=== PATIENT | male | born 1995 | race Caucasian/White ===

== ENCOUNTER 2017-11-08 19:23 | Emergency (ER) | payer OTHER ==
[2017-11-08 19:31] VITALS: BP 157/103
--- NOTE | 2017-11-08 19:53 | RAD ---
Indication: Left wrist pain 3 views of the wrist demonstrates no fracture. No other bone or joint abnormality is identified. IMPRESSION: NO FRACTURE OF THE WRIST IS NOTED.
--- NOTE | 2017-11-08 19:56 | UC ---
Evie Brothers Emily, scribed for Lake Davis MD on 11/08/17 at 1946 . Hand/Wrist HPI - HPI Summary HPI Summary: This patient is a 22 year old M presenting to urgent care accompanied by family with a chief complaint of L hand pain radiating up the L arm that began 2 days ago. Pt denies any injury to hand. The patient rates the pain 3/10 in severity. Symptoms aggravated by holding things and movement. Symptoms alleviated by nothing. Patient reports numbness on back of hand. - History Of Current Complaint Chief Complaint: UCUpperExtremity Stated Complaint: WRIST PAIN Time Seen by Provider: 11/08/17 19:34 Hx Obtained From: Patient Onset/Duration: Sudden Onset, Lasting Days, Still Present Severity Initially: Mild Severity Currently: Mild Pain Intensity: 3 Pain Scale Used: 0-10 Numeric Aggravating Factor(s): Movement, Lifting Alleviating Factor(s): Nothing Associated Signs And Symptoms: Positive: Numbness/Tingling - Allergies/Home Medications Allergies/Adverse Reactions: Allergies Allergy/AdvReac Type Severity Reaction Status Date / Time pollen extracts Allergy Severe CONGESTION, Verified 11/08/17 19:31 SNEEZY, RUNNY EYES Home Medications: Home Medications NK [No Home Medications Reported] 11/08/17 [History Confirmed 11/08/17] PMH/Surg Hx/FS Hx/Imm Hx Previously Healthy: Yes Cardiovascular History: Other - Negative HTN Other Cardiovascular History: . Respiratory History: Other - Negative asthma Other Respiratory History: . - Surgical History Surgical History: None - Family History Known Family History: Positive: Diabetes - Social History Occupation: Unemployed Lives: With Family Alcohol Use: Occasionally Substance Use Type: None Smoking Status (MU): Former Smoker Review of Systems Musculoskeletal: Other: - Positive L hand pain Neurological: Numbness All Other Systems Reviewed And Are Negative: Yes Physical Exam - Summary Physical Exam Summary: General: well-appearing, no pain distress Skin: warm, color reflects adequate perfusion, dry Head: normal Eyes: EOMI, OLGA LIDIA ENT: normal Neck: supple, nontender Respiratory: CTA, breath sounds present Cardiovascular: RRR Abdomen: soft, nontender Bowel: present Musculoskeletal: strength/ROM intact, L wrist tender on the dorsal aspect. Pain with wrist extension, flexion, abduction, and adduction. 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 No sensation deficit. Elbow has full range of motion and is nontender. Neurological: normal, sensory/motor intact, A&O x3 Psychological: affect/mood appropriate Triage Information Reviewed: Yes Vital Signs: Initial Vital Signs Temp 96.1 F 11/08/17 19:28 Pulse 107 11/08/17 19:28 Resp 16 11/08/17 19:28 BP 157/103 11/08/17 19:28 Pulse Ox 99 11/08/17 19:28 Vital Signs Reviewed: Yes Diagnostics - Radiology Wrist XR Radiology Interpretation Completed By: Radiologist - Wrist XR reveals, per radiologist, NO FRACTURE OF THE WRIST IS NOTED. Physician has reviewed this radiology report. Hand/Wrist Course/Dx - Course Course Of Treatment: Elevated BP noted and advised to follow up with PCP - Differential Dx/Diagnosis Provider Diagnoses: LEFT WRIST TENDONITIS. Elevated BP without diagnosis of HTN. Discharge - Discharge Plan Condition: Stable Disposition: HOME Patient Education Materials: Tendinitis (ED) Referrals: Mitch Poole MD [Primary Care Provider] - Additional Instructions: FOLLOW UP WITH YOUR DOCTOR. GET RECHECKED FOR ANY WORSENING OF YOUR CONDITION OR QUESTIONS OR CONCERNS. YOUR BLOOD PRESSURE WAS ELEVATED DURING TODAY'S VISIT; FOLLOW UP WITH YOUR PCP WITHIN ONE WEEK FOR FURTHER EVALUATION. The documentation as recorded by the Evie zavala Emily accurately reflects the service I personally performed and the decisions made by me, Lake Davis MD.
== END 2017-11-08 20:00 | disposition home or self-care (01) ==
LOC: UCEAST 19:23
DX: M65.842 Other synovitis and tenosynovitis, left hand (principal); R03.0 Elevated blood-pressure reading, without diagnosis of hypertension; Z87.891 Personal history of nicotine dependence
CPT/HCPCS: 99212; G0463

== ENCOUNTER 2018-03-07 13:32 | Emergency (ER) | payer OTHER, MEDICAID ==
[2018-03-07 13:54] VITALS: BP 137/82
--- NOTE | 2018-03-07 14:14 | UC ---
Lower Extremity/Ankle HPI - HPI Summary HPI Summary: twisted left foot/ankle 10 days ago then again last night has been limping has pain on lateral left side of foot - History of Current Complaint Chief Complaint: UCLowerExtremity Stated Complaint: LEFT FOOT/ANKLE INJURY Time Seen by Provider: 03/07/18 13:52 Hx Obtained From: Patient Onset/Duration: Sudden Onset, Lasting Days, Still Present Pain Intensity: 1 Pain Scale Used: 0-10 Numeric Aggravating Factor(s): Standing, Ambulation Alleviating Factor(s): Rest, Elevation, Ice Able to Bear Weight: Yes - with pain - Allergies/Home Medications Allergies/Adverse Reactions: Allergies Allergy/AdvReac Type Severity Reaction Status Date / Time pollen extracts Allergy Severe CONGESTION, Verified 03/07/18 13:54 SNEEZY, RUNNY EYES PMH/Surg Hx/FS Hx/Imm Hx Previously Healthy: Yes - Surgical History Surgical History: None - Family History Known Family History: Positive: None, Diabetes - Social History Occupation: Works From/At Home Lives: With Family Alcohol Use: Occasionally Substance Use Type: None Smoking Status (MU): Former Smoker Review of Systems Constitutional: Negative Skin: Negative Eyes: Negative ENT: Negative Respiratory: Negative Cardiovascular: Negative Gastrointestinal: Negative Genitourinary: Negative Motor: Negative Neurovascular: Negative Musculoskeletal: Arthralgia - left lateral foot Neurological: Negative Psychological: Negative Is Patient Immunocompromised?: No All Other Systems Reviewed And Are Negative: Yes Physical Exam Triage Information Reviewed: Yes Appearance: Well-Appearing, Pain Distress - mild, Obese Vital Signs: Initial Vital Signs Temp 97.9 F 03/07/18 13:48 Pulse 108 03/07/18 13:48 Resp 16 03/07/18 13:48 BP 137/82 03/07/18 13:48 Pulse Ox 98 03/07/18 13:48 Vital Signs Reviewed: Yes Eye Exam: Normal Eyes: Positive: Conjunctiva Clear ENT Exam: Normal ENT: Positive: Normal ENT inspection, Hearing grossly normal. Negative: Nasal congestion, Trismus, Muffled voice, Hoarse voice Dental Exam: Normal Neck exam: Normal Neck: Positive: Supple, Nontender Respiratory Exam: Normal Respiratory: Positive: Chest non-tender, No respiratory distress, No accessory muscle use Cardiovascular Exam: Normal Cardiovascular: Positive: RRR, Pulses Normal, Brisk Capillary Refill Musculoskeletal Exam: Normal Musculoskeletal: Positive: Strength Intact, ROM Intact, No Edema Neurological Exam: Normal Neurological: Positive: Alert, Muscle Tone Normal Psychological Exam: Normal Skin Exam: Normal Diagnostics - Radiology No standard instances Xray Interpretation: No Acute Changes Radiology Interpretation Completed By: ED Physician, Radiologist - Patient Name : MICHELLE VERAS Medical Record#: [id number] Ordering Physician: Martha Syed NP Acct.#: [id number] : 1995 Age: 22 Sex: M Location: [facility]RG[facility]ARE [facility] Exam Date : 03/07/18 142 ADM Status: REG ER Order Information: FOOT LEFT 3+ VWS Accession Number: [id number] CPT: 55753 INDICATION: Right foot pain COMPARISON: None TECHNIQUE: AP, lateral, and oblique views were obtained. FINDINGS: The bony structures, joint spaces, and soft tissues are normal for age. IMPRESSION: NO ACUTE FRACTURE <Electronically signed by Lake Hnog MD in OV> 143 Dictated By: Lake Hong MD Dictated Date/Time: 03/07/181438 Transcribed Date/Time: 03/07/188 Copy to: CC:Martha Syed NP; Dannie Watkins DO; No Primary Care Phys,NOPCP Imaging - [facility] Imaging [facility]gent [facility] [address] [place] [address] ph [phone] ph [phone] ph [phone]) 1 of 1 Lower Extremity Course/Dx - Course Course Of Treatment: ambika wrap, post op shoe, rice, ibuprofen follow with pcp prn - Differential Dx/Diagnosis Provider Diagnoses: left foot sprain Discharge - Sign-Out/Discharge Documenting (check all that apply): Discharge/Admit/Transfer - Discharge Plan Condition: Stable Disposition: HOME Patient Education Materials: Ibuprofen (By mouth), Foot Sprain (ED), R.I.C.E. Treatment (ED) Referrals: Ahsan Olivera MD [Medical Doctor] - If Needed - Billing Disposition and Condition Condition: STABLE Disposition: Home
--- NOTE | 2018-03-07 14:42 | RAD ---
INDICATION: Right foot pain COMPARISON: None TECHNIQUE: AP, lateral, and oblique views were obtained. FINDINGS: The bony structures, joint spaces, and soft tissues are normal for age. IMPRESSION: NO ACUTE FRACTURE
== END 2018-03-07 14:55 | disposition home or self-care (01) ==
LOC: UCCORT 13:32
DX: S93.602A Unspecified sprain of left foot, initial encounter (principal); X50.1XXA Overexertion from prolonged static or awkward postures, initial encounter; Y93.9 Activity, unspecified; Y92.9 Unspecified place or not applicable; Z87.891 Personal history of nicotine dependence
CPT/HCPCS: 99213; G0463

== ENCOUNTER 2019-01-18 17:42 | Emergency (ER) | payer OTHER, MEDICAID ==
[2019-01-18 18:05] VITALS: BP 142/91
--- NOTE | 2019-01-18 18:57 | UC ---
Hand/Wrist HPI - HPI Summary HPI Summary: 23-year-old male with a chief complaint of right hand pain. Today he accidentally struck the back of his right hand on a solid object. He had immediate pain. He's had some swelling in the back of the hand. Now he has decreased range of motion of the fingers of the right hand with extension or flexion. There is some numbness in the hand with the swelling. No skin break. Denies any wrist pain or any other injuries. - History Of Current Complaint Chief Complaint: UCUpperExtremity Stated Complaint: R HAND INJURY Time Seen by Provider: 01/18/19 18:15 Pain Intensity: 2 - Allergies/Home Medications Allergies/Adverse Reactions: Allergies Allergy/AdvReac Type Severity Reaction Status Date / Time pollen extracts Allergy Severe CONGESTION, Verified 01/18/19 18:05 SNEEZY, RUNNY EYES PMH/Surg Hx/FS Hx/Imm Hx Previously Healthy: Yes - Surgical History Surgical History: None - Family History Known Family History: Positive: None, Diabetes - Social History Alcohol Use: None Substance Use Type: None Smoking Status (MU): Former Smoker Review of Systems All Other Systems Reviewed And Are Negative: Yes Constitutional: Positive: Negative Skin: Positive: Bruising - RT HAND DORSUM Eyes: Positive: Negative ENT: Positive: Negative Respiratory: Positive: Negative Cardiovascular: Positive: Negative Gastrointestinal: Positive: Negative Motor: Positive: Decreased ROM Neurovascular: Positive: Negative Musculoskeletal: Positive: Other: - SEE HPI Neurological: Positive: Numbness Psychological: Positive: Negative Is Patient Immunocompromised?: No Physical Exam Triage Information Reviewed: Yes Appearance: Well-Appearing, No Pain Distress, Well-Nourished Vital Signs: Initial Vital Signs Temp 97.7 F 01/18/19 18:01 Pulse 88 01/18/19 18:01 Resp 18 01/18/19 18:01 BP 142/91 01/18/19 18:01 Pulse Ox 98 01/18/19 18:01 Vital Signs Reviewed: Yes Eye Exam: Normal Eyes: Positive: Conjunctiva Clear Neck: Positive: Supple Respiratory: Positive: No respiratory distress Musculoskeletal: Positive: Other: - On the dorsum of the right hand there is some ecchymosis and also swelling it's tender to palpation. Wrist is nontender to palpation with full range of motion normal radial pulse. Patient's unable to fully extend or fully flex the fingers secondary to pain. Normal capillary refill no sensation deficit on exam. Neurological: Positive: Alert Psychological Exam: Normal Psychological: Positive: Normal Response To Family, Age Appropriate Behavior Skin: Positive: Other - 3CM X 1CM ECCYMOSIS DORSUM OR RT HAND Hand/Wrist Course/Dx - Course Course Of Treatment: I discussed the x-rays with the patient. I do not see any fractures radiologist reading is pending. Overall he has a crush injury to the back of his hand and these inflamed his tendons. Patient's third fourth and fifth fingers were splinted to include the MCP joints by nursing and the patient neurovascular intact after splinting. Overall the plan is ibuprofen and ice splinting elevation. If not improved or worse or if is any sign of fracture seen by the radiologist patient will need to follow-up with orthopedics. - Differential Dx/Diagnosis Provider Diagnosis: Contusion of right hand Discharge - Sign-Out/Discharge Documenting (check all that apply): Patient Departure All imaging exams completed and their final reports reviewed: No - Discharge Plan Condition: Stable Disposition: HOME Patient Education Materials: Hand Sprain (ED), Tendinitis (ED) Forms: *Work Release Referrals: Genesis Monae MD [Medical Doctor] - Additional Instructions: FOLLOW UP WITH ORTHOPEDICS IF NOT COMPLETELY IMPROVED. GET REEVALUATED SOONER IF YOUR CONDITION WORSENS OR ANY QUESTIONS OR CONCERNS. - Billing Disposition and Condition Condition: STABLE Disposition: Home
--- NOTE | 2019-01-19 12:53 | UC ---
- Progress Note Progress Note: RADIOLOGY REPORT REVIEWED. SOFT TISSUE SWELLING, NO ACUTE FRACTURE IS SEEN. NO CHANGE IN MGMT. Course/Dx - Diagnoses Provider Diagnoses: Contusion of right hand Discharge - Sign-Out/Discharge Documenting (check all that apply): Post-Discharge Follow Up All imaging exams completed and their final reports reviewed: Yes - Discharge Plan Condition: Stable Disposition: HOME Patient Education Materials: Hand Sprain (ED), Tendinitis (ED) Forms: *Work Release Referrals: Genesis Monae MD [Medical Doctor] - Additional Instructions: FOLLOW UP WITH ORTHOPEDICS IF NOT COMPLETELY IMPROVED. GET REEVALUATED SOONER IF YOUR CONDITION WORSENS OR ANY QUESTIONS OR CONCERNS. - Billing Disposition and Condition Condition: STABLE Disposition: Home
== END 2019-01-18 19:13 | disposition home or self-care (01) ==
LOC: UCEAST 17:42
DX: S60.221A Contusion of right hand, initial encounter (principal); W22.09XA Striking against other stationary object, initial encounter; Y92.9 Unspecified place or not applicable; Z87.891 Personal history of nicotine dependence
CPT/HCPCS: 99211; G0463

== ENCOUNTER 2019-04-13 17:13 | Emergency (ER) | payer MEDICAID, OTHER ==
[2019-04-13 17:24] VITALS: BP 140/94
--- NOTE | 2019-04-13 18:25 | UC ---
General HPI - HPI Summary HPI Summary: PATIENT COMES TO THE URGENT CARE AFTER ALMOST FALLING ASLEEP AT THE WHEEL TODAY. STATES HE FEELS CHRONICALLY FATIGUED AND CAN FALL ASLEEP AT ANY TIME. WAS DIAGNOSED ABOUT 4 MONTHS AGO WITH HIGH BLOOD PRESSURE AND BORDERLINE DIABETES. WAS STARTED ON LISINOPRIL BUT STATES HE DID NOT TOLERATE THIS MEDICATION SO THAT WAS STOPPED ABOUT 1 MONTH AGO. HE IS NOT CHECKING HIS BLOOD PRESSURE OR HIS BLOOD GLUCOSE AT HOME. HE DENIES ANY CHEST PAIN, SHORTNESS OF BREATH, NAUSEA, HEADACHE, VISUAL DISTURBANCES. - History of Current Complaint Chief Complaint: UCGeneralIllness Stated Complaint: DIZZY SPELLS, AND TIREDNESS Time Seen by Provider: 04/13/19 17:18 Hx Obtained From: Patient, Family/Agent Contract Clerk - Onset/Duration: Gradual Onset, Lasting Weeks Onset Severity: Moderate Current Severity: Mild Pain Intensity: 0 Associated Signs & Symptoms: Positive: Dizziness. Negative: Cough, Chest Pain, Decreased Responsiveness, Fever, Headache, Nausea, Palpitations, Syncope, SOB, Weakness - Allergy/Home Medications Allergies/Adverse Reactions: Allergies Allergy/AdvReac Type Severity Reaction Status Date / Time pollen extracts Allergy Severe CONGESTION, Verified 04/13/19 17:24 SNEEZY, RUNNY EYES PMH/Surg Hx/FS Hx/Imm Hx Endocrine History: Diabetes Cardiovascular History: Hypertension - Surgical History Surgical History: None - Family History Known Family History: Positive: Cardiac Disease, Hypertension, Diabetes - Social History Alcohol Use: Rare Substance Use Type: None Smoking Status (MU): Former Smoker Review of Systems All Other Systems Reviewed And Are Negative: Yes Constitutional: Positive: Fatigue Skin: Positive: Negative ENT: Positive: Negative Respiratory: Positive: Negative Cardiovascular: Positive: Negative Gastrointestinal: Positive: Negative Neurological: Positive: Other - DIZZY Physical Exam Triage Information Reviewed: Yes Appearance: Well-Appearing, No Pain Distress, Well-Nourished Vital Signs: Initial Vital Signs Temp 96.9 F 04/13/19 17:19 Pulse 86 04/13/19 17:19 Resp 18 04/13/19 17:19 BP 140/94 04/13/19 17:19 Pulse Ox 97 04/13/19 17:19 Laboratory Tests 04/13/19 17:39 POC Glucose (mg/dL) 135 H Vital Signs Reviewed: Yes Eyes: Positive: Conjunctiva Clear ENT: Positive: Hearing grossly normal Neck: Positive: Supple, Nontender, No Lymphadenopathy Respiratory Exam: Normal Cardiovascular Exam: Normal Abdomen Description: Positive: Soft Musculoskeletal: Positive: No Edema Neurological: Positive: Alert Psychological: Positive: Age Appropriate Behavior Skin: Negative: Rashes Diagnostics - EKG Cardiac Rate: NL - 78BPM Cardiac Rhythm: Sinus: Normal Ectopy: None ST Segment: Normal Course/Dx - Course Course Of Treatment: PATIENT PRESENTS WITH EXCESSIVE FATIGUE. STATES HE WAS DIAGNOSED WITH HIGH BLOOD PRESSURE SEVERAL MONTHS AGO AND BORDERLINE DIABETES. IS NOT CURRENTLY ON ANY MEDICATION AND IS NOT CHECKING HIS NUMBERS AT HOME. STATES HE CAME INTO THE URGENT CARE TODAY AFTER NEARLY FALLING ASLEEP AT THE WHEEL. EKG WAS UNREMARKABLE. RANDOM FINGERSTICK GLUCOSE 135. PATIENT STATES HE HAS NEVER HAD BLOOD WORK DONE OTHER THAN AN A1C WHICH HIS REPORTS WAS 6.4 ABOUT 6 WEEKS AGO. HIS SYMPTOMS ARE LIKELY MULTIFACTORIAL AND REQUIRE FREQUENT FOLLOW-UP WITH HIS PCP. PATIENT IS QUITE RESISTANT TO MEDICAL CARE. I STRESSED TO HIM THE IMPORTANCE OF CONTROLLING HIS CHRONIC MEDICAL PROBLEMS NOW TO PREVENT DEVELOPING MORE SERIOUS PROBLEMS IN THE FUTURE. HE STATES HE HAS A SLEEP STUDY SCHEDULED FOR 05/08/19. I ENCOURAGED HIM TO KEEP HIS APPOINTMENT HE LIKELY HAS SLEEP APNEA A CONTRIBUTING FACTOR. CBC, CMP AND TSH ALSO DRAWN TO FURTHER EVALUATE FOR ANY UNDERLYING CAUSE. I ADVISED HIM TO GET A BLOOD PRESSURE CUFF AND KEEP A BP LOG AND FOLLOW-UP WITH HIS PCP THIS WEEK. - Diagnoses Provider Diagnosis: Fatigue, Hypertension Discharge - Sign-Out/Discharge Documenting (check all that apply): Patient Departure All imaging exams completed and their final reports reviewed: No Studies - Discharge Plan Condition: Stable Disposition: HOME Patient Education Materials: Fatigue (ED) Forms: *Work Release Referrals: Christos Pimentel MD [Primary Care Provider] - 1 Day Additional Instructions: YOUR EXCESSIVE FATIGUE MAY BE MULTIFACTORIAL IN NATURE. YOUR FINGER STICK GLUCOSE TODAY WAS 135. A KNOWN BORDERLINE DIABETIC I ENCOURAGE YOU TO CONTINUE TO WATCH YOUR DIET. YOUR BLOOD PRESSURE IS ELEVATED. I RECOMMEND YOU FOLLOW-UP WITH YOUR PCP TO DISCUSS AN EVALUATION TO RULE OUT ANY UNDERLYING CAUSE OF YOUR HIGH BLOOD PRESSURE. YOU MUST WORK ON LIFESTYLE MODIFICATIONS INCLUDING DIET AND EXERCISE. WITH SOME WEIGHT LOSS AND IMPROVED OVERALL CONDITIONING YOUR BLOOD PRESSURE MAY COME DOWN HOWEVER IT IS LIKELY YOU WILL NEED MEDICATION DURING THIS PROCESS. GET A BP CUFF AND KEEP A LOG OF YOUR BP READINGS. FOLLOW-UP WITH YOUR PCP THIS WEEK. BLOOD COUNT, METABOLIC PANEL AND THYROID TEST DRAWN TODAY. GO TO ED WITHOUT FAIL IF YOU HAVE RECURRENT FAINTNESS, DIZZINESS OR IF YOU DEVELOP SHORTNESS OF BREATH, CHEST PAIN, NAUSEA, SWEATS OR ANY OTHER CONCERNING SYMPTOMS. KEEP YOUR SLEEP STUDY SCHEDULED ON 05/08 SLEEP APNEA CAN ALSO CONTRIBUTE TO HIGH BP AND FATIGUE. - Billing Disposition and Condition Condition: STABLE Disposition: Home
[2019-04-14 11:52] LABS: ABS Basophils 0.1 10^3/ul (0-0.2); ABS Eosinophils 0.2 10^3/ul (0-0.6); ABS Lymphocytes 4.1 10^3/ul (1.0-4.8); ABS Monocytes 0.9 10^3/ul (0-0.8); ABS Neutrophils 5.3 10^3/ul (1.5-7.7); Eosinophil % 1.9 %; Hematocrit 46 % (42-52); Hemoglobin 15.7 g/dL (14.0-18.0); Lymphocyte % 38.6 %; Mean Corpuscular HGB Conc 34 g/dL (31-36); Mean Corpuscular Hemoglobin 28 pg (27-31); Mean Corpuscular Volume 82 fL (80-94); Mean Platelet Volume 8.8 fL (7.4-10.4); Nucleated Red Blood Cells % 0.2; Platelet Count 280 10^3/uL (150-450); Red Blood Count 5.64 10^6 /uL (4.18-5.48); Red Cell Distribution Width 14 % (10-15); White Blood Count 10.6 10^3/uL (3.5-10.8)
[2019-04-14 11:59] LABS: Albumin 4.7 g/dL (3.2-5.2); Calcium 9.9 mg/dL (8.6-10.3); Potassium 4.2 mmol/L (3.5-5.0); Total Bilirubin 0.7 mg/dL (0.2-1.0)
[2019-04-14 12:04] LABS: Albumin/Globulin Ratio 1.6 (1-3); BUN/Creatinine Ratio 18.8 (8-20); EGFR Non-African American 89.3 (>60); Total Protein 7.7 g/dL (6.4-8.9)
[2019-04-14 12:18] LABS: TSH (Thyroid Stimulating Horm) 2.07 mcIU/mL (0.34-5.60)
== END 2019-04-13 18:25 | disposition home or self-care (01) ==
LOC: UCEAST 17:13
DX: R53.83 Other fatigue (principal); I10 Essential (primary) hypertension; E11.9 Type 2 diabetes mellitus without complications; Z87.891 Personal history of nicotine dependence
CPT/HCPCS: 36415; 80053; 84443; 85025; 93005; 99211; G0463

== ENCOUNTER 2019-06-17 17:15 | Emergency (ER) | payer MEDICAID, OTHER ==
--- OUTSIDE RECORDS SUMMARY | 2019-06-17 17:29 | XMS REPORT | Continuity of Care Document ---
:1995 External Reference #:[id number] Author Name Rosita Perez NP Address [address] [facility] [place] [address] Care Team Providers Name Role Phone Christos Pimentel MD Care Team Information Production Underwriter Unavailable Christos Pimentel MD Primary Care Physician Unavailable Payers Date Identification Numbers Payment Provider Subscriber Effective: 2013 Policy Number: [id number] [facility] [employer] Number: [id number] [address] PayID: [id number] [place] [address] Effective: 2018 Policy Number: [id number] Medicaid [place] Boyd Traore PayID: [id number] [address] [place] [address] Problems Active Problems Provider Date Type 2 diabetes mellitus Rosita Perez NP Onset: 04/16/2019 Family History Date Family Member(s) Observation Comments Father due to motor vehicle accident () Mother 53 Mother Stroke Mother Diabetes Mellitus, II Mother Mitral Valve Disorder Mother Blindness And/Or Vision Impairment Level Mother amputation Paternal Grandfather estranged Paternal Grandmother estranged Maternal Grandfather Parent Child Estrangement Maternal Grandmother estranged Social History Type Date Description Comments Sex Unknown Marital Status . 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 Tobacco Use Start: Unknown End: Patient is a former Unknown smoker Smoking Status Reviewed: 04/16/19 Patient is a former smoker Currently Active Patient is currently sexually active Allergies, Adverse Reactions, Alerts Description No Known Drug Allergies Medications Active Medications SIG Qnty Indications Ordering Provider Date No Active Medications Unknown 03/08/2019 History Medications No Active Unknown 01/25/2019 - Medications 01/25/2019 Lisinopril 1 by mouth 90tabs I10 Christos TChrissie 01/25/2019 - 20mg every day MD Loren 03/08/2019 Tablets No Active Unknown 01/02/2019 - Medications 01/02/2019 Amoxicillin/Clavulan 2 by mouth 40units J06.9 Arely Champion, [facility] 2018 - ate Potassium twice a day 01/25/2019 with food 400-57mg Chewtabs No Active Unknown 12/03/2018 - Medications 12/03/2018 Penicillin V 10 mL tid x 7 200ml J02.9 Maviscami Avery, 12/03/2018 - Potassium days [facility] 01/02/2019 250mg/5ML Solution Rec H92.01 Vital Signs Date Vital Result Comment 04/16/2019 1:00pm BP Systolic 134 mmHg BP Diastolic 86 mmHg Heart Rate 104 /min Body Temperature 97.7 F Height 71 inches 5'11" Weight 289.00 lb BMI (Body Mass Index) 40.3 kg/m2 03/08/2019 9:43am BP Systolic 130 mmHg BP Diastolic 90 mmHg Heart Rate 80 /min Body Temperature 97.9 F Respiratory Rate 12 /min Height 71 inches 5'11" Weight 285.00 lb BMI (Body Mass Index) 39.7 kg/m2 02/01/2019 10:06am BP Systolic 120 mmHg BP Diastolic 86 mmHg Heart Rate 66 /min Body Temperature 97.7 F 01/25/2019 4:12pm BP Systolic 152 mmHg BP Diastolic 112 mmHg Heart Rate 78 /min Body Temperature 97.3 F Respiratory Rate 12 /min Height 71 inches 5'11" Weight 284.00 lb BMI (Body Mass Index) 39.6 kg/m2 01/02/2019 9:28am BP Systolic 140 mmHg BP Diastolic 94 mmHg Heart Rate 72 /min Body Temperature 97.9 F Respiratory Rate 16 /min Height 71 inches 5'11" Weight 284.00 lb BMI (Body Mass Index) 39.6 kg/m2 12/05/2018 10:04am BP Systolic 130 mmHg BP Diastolic 94 mmHg Heart Rate 88 /min Body Temperature 98.3 F Height 71 inches 5'11" 12/03/2018 9:57am BP Systolic 130 mmHg BP Diastolic 84 mmHg Heart Rate 77 /min Body Temperature 97.5 F Respiratory Rate 22 /min Height 71 inches 5'11" Weight 291.00 lb BMI (Body Mass Index) 40.6 kg/m2 Results Test Date Facility Test Result H/L Range Note Laboratory test 04/16/2019 [facility] HCV AB (Fma) <pending> negative finding (607)- - Hepatitis B 04/16/2019 [facility] Hep B Surface Reactive 1, 2 Surface AB Qual [address] [place] [address] Ab, [place] [address] (607)- - Hep B Surface Ab See Comment: Comp Metabolic Panel 04/13/2019 [facility] Sodium 138 mmol/L N 135-145 3 Potassium 4.2 mmol/L N 3.5-5.0 Chloride 104 mmol/L N 101-111 Co2 Carbon Dioxide 26 mmol/L N 22-32 Anion Gap 8 mmol/L N 2-11 Calcium 9.9 mg/dL N 8.6-10.3 Albumin 4.7 g/dL N 3.2-5.2 Total Bilirubin 0.70 mg/dL N 0.2-1.0 Glucose 133 mg/dL High 70-100 Blood Urea Nitrogen 19 mg/dL N 6-24 Creatinine 1.01 mg/dL N 0.67-1.17 BUN/Creatinine Ratio 18.8 N 8-20 Total Protein 7.7 g/dL N 6.4-8.9 Globulin 3.0 g/dL N 2-4 Albumin/Globulin Ratio 1.6 N 1-3 Alkaline Phosphatase 90 U/L N 34-104 Alt 69 U/L High 7-52 Ast 35 U/L N 13-39 Egfr Non- 89.3 >60 Egfr 108.0 >60 4 Laboratory test finding 04/13/2019 [facility] TSH (Thyroid Stim 2.07 mcIU/mL N 0.34-5.60 5 Horm) CBC Auto Diff 04/13/2019 [facility] White Blood Count 10.6 10^3/uL N 3.5-10.8 Red Blood Count 5.64 10^6/uL High 4.18-5.48 Hemoglobin 15.7 g/dL N 14.0-18.0 Hematocrit 46 % N 42-52 Mean Corpuscular Volume 82 fL N 80-94 Mean Corpuscular Hemoglobin 28 pg N 27-31 Mean Corpuscular HGB Conc 34 g/dL N 31-36 Red Cell Distribution Width 14 % N 10-15 Platelet Count 280 10^3/uL N 150-450 Mean Platelet Volume 8.8 fL N 7.4-10.4 Abs Neutrophils 5.3 10^3/uL N 1.5-7.7 Abs Lymphocytes 4.1 10^3/uL N 1.0-4.8 Abs Monocytes 0.9 10^3/uL High 0-0.8 Abs Eosinophils 0.2 10^3/uL N 0-0.6 Abs Basophils 0.1 10^3/uL N 0-0.2 Abs Nucleated RBC 0.0 10^3/uL Granulocyte % 50.2 % Lymphocyte % 38.6 % Monocyte % 8.2 % Eosinophil % 1.9 % Basophil % 1.1 % Nucleated Red Blood Cells % 0.2 Laboratory test 04/13/2019 [facility] Point of Care 135 mg/dL High 70-100 6 finding Glucose Laboratory test 03/08/2019 [facility] Hemoglobin A1c 6.4 % High 4.1- 5.7 finding (607)- - (Fma) Laboratory test 12/05/2018 [facility] Hemoglobin A1c 6.8 % High 4.1- 5.7 finding (607)- - (Fma) 1 SERUM 2 Non Reactive: Inconsistent with immunity, less than 10 mIU/mL Reactive: Consistent with immunity, greater than 9.9 mIU/mL 3 [id number] 4 Because ethnic data is not always readily available, this report includes an eGFR for both -Americans and non- Americans. The National Kidney Disease Education Program (NKDEP) does not endorse the use of the MDRD equation for patients that are not between the ages of 18 and 70, are , have extremes of body size, muscle mass, or nutritional status, or are non- or non-. According to the National Kidney Foundation, irrespective of diagnosis, the stage of the disease is based on the level of kidney function: Stage Description GFR(mL/min/1.73 m(2)) 1 Kidney damage with normal or decreased GFR 90 2 Kidney damage with mild decrease in GFR 60-89 3 Moderate decrease in GFR 30-59 4 Severe decrease in GFR 15-29 5 Kidney failure <15 (or dialysis) 5 [id number] 6 [facility] Director: [id number] Procedures Date Code Description Status 03/08/2019 35955 Finger Or Heel Stick Completed 12/05/2018 77815 Finger Or Heel Stick Completed Encounters Type Date Location Provider Dx Diagnosis Office Visit 03/08/2019 [facility] Office Christos Serrato Essential (primary) 9:40a MD Loren hypertension R73.9 Hyperglycemia, unspecified G47.39 Other sleep apnea Office Visit 02/01/2019 [facility] Christos Serrato Essential 10:00a Office MD Loren (primary) hypertension Office Visit 01/25/2019 [facility] Christos Serrato Essential 4:10p Office MD Loren (primary) hypertension Office Visit 01/02/2019 Main Office TRAVIS Lopez J06.9 Acute upper 9:30a respiratory infection, unspecified Office Visit 12/05/2018 Main Office TRAVIS Lopez J02.9 Acute pharyngitis, 9:45a unspecified H92.01 Otalgia, right ear Z83.3 Family history of diabetes mellitus Office Visit 12/03/2018 10:00a [facility] Office Mavis J02.9 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 Goal blood pressure is less than 140/80. Recommend low salt/cardiac diet and routine exercise.E11.9 Type 2 diabetes mellitus without complicationsComments:Recommend yearly diabetic eye and foot exams, and check on blood pressure periodically. Goal blood sugar is less than 140 in the morning or A1c less than 7. recommend weight loss, diet low in sugar,high in protein healthy fats 150 min of exercise a week consider adding metformin declined today but if not at goal next visit will addZ20.5 Contact with and (suspected) exposure to viral hepatitisAllComments:Medication Management Patient Understands medications he 's taking? Yes No Are there Barriers to Adherence? Yes No Has the patient been asked about herbal supplements and therapies, andOTC meds? Yes No Care Plan1. Patient has been queried about patient's goals/preferences and functional/ lifestyle goals at relevant visits. If relevant, describe: na2. Treatment goals as explained to the patient: above3. Are there barriers to meeting treatment goals? Yes No If Yes, please describe: comorbid conditions4. Self-Management goals as described to the patient: Yes NoAs always, we strongly encourage a healthy diet and making physical activity a part of your every day life. If you have questions about how or where to start, please contact the office. Goals 04/16/2019 - Rosita Perez, NPE11.9 Type 2 diabetes mellitus without complicationsstopping soda 30 mins exercise a day increased vegetables, increased protein intake reduce fast foodand overt sugars
--- OUTSIDE RECORDS SUMMARY | 2019-06-17 17:29 | XMS REPORT | Continuity of Care Document ---
:1993 External Reference #:[id number] Author Name Juany Robertson M.D. Address [address] [place] [address] Care Team Providers Name Role Phone Christos Pimentel MD - Family Care Team Information [employer] Agent Medicine Problems Active Problems Provider Date Type 2 diabetes mellitus Rosita Perez NP Onset: 04/16/2019 Social History Type Date Description Comments Sex Unknown Tobacco Use Start: Unknown End: Unknown Patient is a former smoker Smoking Status Reviewed: 04/16/19 Patient is a former smoker Allergies, Adverse Reactions, Alerts Description No Known Drug Allergies Medications Active Medications SIG Qnty Indications Ordering Provider Date Cephalexin 10 ml by mouth 200ml L60.0 Juany Robertson, 05/04/2019 250mg/5ML three times a M.D. Suspension Rec day x 7 History Medications No Active Unknown 03/08/2019 - Medications 05/04/2019 No Active Unknown 01/25/2019 - Medications 01/25/2019 Lisinopril 1 by mouth 90tabs I10 Christos Del Castillo 01/25/2019 - 20mg every day MD Loren 03/08/2019 Tablets No Active Unknown 01/02/2019 - Medications 01/02/2019 Amoxicillin/Clavulan 2 by mouth 40units J06.9 Arely Champion, [employer] 2018 - ate Potassium twice a day 01/25/2019 with food 400-57mg Chewtabs No Active Unknown 12/03/2018 - Medications 12/03/2018 Penicillin V 10 mL tid x 7 200ml J02.9 Mavis Avery, 12/03/2018 - Potassium days [employer] 01/02/2019 250mg/5ML Solution Rec H92.01 Immunizations Description No Information Available Vital Signs Date Vital Result Comment 05/04/2019 2:28pm BP Systolic 132 mmHg BP Diastolic 98 mmHg Heart Rate 78 /min Body Temperature 97.9 F Height 71 inches 5'11" Weight 289.00 lb BMI (Body Mass Index) 40.3 kg/m2 04/16/2019 1:00pm BP Systolic 134 mmHg BP Diastolic 86 mmHg Heart Rate 104 /min Body Temperature 97.7 F Height 71 inches 5'11" Weight 289.00 lb BMI (Body Mass Index) 40.3 kg/m2 Results Test Date Facility Test Result H/L Range Note Laboratory test 04/16/2019 [facility] HCV AB (Fma) neg negative finding (607)- - Hepatitis B 04/16/2019 [facility] Hep B Surface Reactive 1, 2 Surface AB Qual [address] [place] [address] Ab, [place] [address] (607)- - Hep B Surface Ab See Comment: Comp Metabolic Panel 04/13/2019 [facility] Sodium 138 mmol/L Normal 135-145 3 Potassium 4.2 mmol/L Normal 3.5-5.0 Chloride 104 mmol/L Normal 101-111 Co2 Carbon Dioxide 26 mmol/L Normal 22-32 Anion Gap 8 mmol/L Normal 2-11 Calcium 9.9 mg/dL Normal 8.6-10.3 Albumin 4.7 g/dL Normal 3.2-5.2 Total Bilirubin 0.70 mg/dL Normal 0.2-1.0 Glucose 133 mg/dL High 70-100 Blood Urea Nitrogen 19 mg/dL Normal 6-24 Creatinine 1.01 mg/dL Normal 0.67-1.17 BUN/Creatinine Ratio 18.8 Normal 8-20 Total Protein 7.7 g/dL Normal 6.4-8.9 Globulin 3.0 g/dL Normal 2-4 Albumin/Globulin Ratio 1.6 Normal 1-3 Alkaline Phosphatase 90 U/L Normal 34-104 Alt 69 U/L High 7-52 Ast 35 U/L Normal 13-39 Egfr Non- 89.3 >60 Egfr 108.0 >60 4 Laboratory test 04/13/2019 [facility] TSH (Thyroid Stim 2.07 mcIU/mL Normal 0.34 -5.60 5 finding Horm) CBC Auto Diff 04/13/2019 [facility] White Blood Count 10.6 10^3/uL Normal 3.5- 10.8 Red Blood Count 5.64 10^6/uL High 4.18-5.48 Hemoglobin 15.7 g/dL Normal 14.0-18.0 Hematocrit 46 % Normal 42-52 Mean Corpuscular Volume 82 fL Normal 80-94 Mean Corpuscular Hemoglobin 28 pg Normal 27-31 Mean Corpuscular HGB Conc 34 g/dL Normal 31-36 Red Cell Distribution Width 14 % Normal 10-15 Platelet Count 280 10^3/uL Normal 150-450 Mean Platelet Volume 8.8 fL Normal 7.4-10.4 Abs Neutrophils 5.3 10^3/uL Normal 1.5-7.7 Abs Lymphocytes 4.1 10^3/uL Normal 1.0-4.8 Abs Monocytes 0.9 10^3/uL High 0-0.8 Abs Eosinophils 0.2 10^3/uL Normal 0-0.6 Abs Basophils 0.1 10^3/uL Normal 0-0.2 Abs Nucleated RBC 0.0 10^3/uL Granulocyte % 50.2 % Lymphocyte % 38.6 % Monocyte % 8.2 % Eosinophil % 1.9 % Basophil % 1.1 % Nucleated Red Blood Cells % 0.2 Laboratory test 04/13/2019 [facility] Point of Care 135 mg/dL High 70-100 6 finding Glucose Laboratory test 03/08/2019 [facility] Hemoglobin A1c 6.4 % High 4.1- 5.7 finding (607)- - (Fma) Laboratory test 12/05/2018 [facility] Hemoglobin A1c 6.8 % High 4.1- 5.7 finding (607)- - (Fma) 1 SERUM 2 Non Reactive: Inconsistent with immunity, less than 10 mIU/mL Reactive: Consistent with immunity, greater than 9.9 mIU/mL 3 [id number] 4 Because ethnic data is not always [...] 5 Kidney failure <15 (or dialysis) 5 [id number] 6 Edge Banding Off Bearer: [id number] Procedures Date Code Description Status 03/08/2019 10939 Finger Or Heel Stick Completed 12/05/2018 70413 Finger Or Heel Stick Completed Medical Devices Description No Information Available Encounters Type Date Location Provider Dx Diagnosis Office Visit 05/04/2019 [facility] Office Juany Robertson, L60.0 Ingrowing nail 2:20p M.D. Office Visit 04/16/2019 [facility] Office Rosita Giles R53.83 Other fatigue 1:00p CONRAD Perez I10 Essential (primary) hypertension E11.9 Type 2 diabetes mellitus without complications Z20.5 Contact with and (suspected) exposure to viral hepatitis Z11.59 Encounter for screening for other viral diseases Office Visit 03/08/2019 9:40a [facility] Office Christos TChrissie I10 Essential MD Loren (primary) hypertension R73.9 Hyperglycemia, unspecified G47.39 Other sleep apnea Office Visit 02/01/2019 [facility] Christos Del Castillo I10 Essential 10:00a Office MD Loren (primary) hypertension Office Visit 01/25/2019 [facility] Christos Del Castillo I10 Essential 4:10p Office MD Loren (primary) hypertension Office Visit 01/02/2019 Main Office TRAVIS Lopez J06.9 Acute upper 9:30a respiratory infection, unspecified Office Visit 12/05/2018 Main Office TRAVIS Lopez J02.9 Acute pharyngitis, 9:45a unspecified H92.01 Otalgia, right ear Z83.3 Family history of diabetes mellitus Office Visit 12/03/2018 10:00a [facility] Office Mavis J02.9 Acute pharyngitis, TRAVIS Avery unspecified H92.01 Otalgia, right ear Assessments Date Code Description Provider 05/04/2019 L60.0 Ingrowing nail Juany Robertson M.D. 04/16/2019 R53.83 Other fatigue Rosita Perez NP 04/16/2019 I10 Essential (primary) hypertension Rosita Perez NP 04/16/2019 E11.9 Type 2 diabetes mellitus without Rosita Perez NP complications 04/16/2019 Z20.5 Contact with and (suspected) exposure to Rosita Perez NP viral hepatitis 04/16/2019 Z11.59 Encounter for screening for other viral Rosita Perez NP diseases 03/08/2019 I10 Essential (primary) hypertension Christos Pimentel MD 03/08/2019 R73.9 Hyperglycemia, unspecified Christos Pimentel MD 03/08/2019 G47.39 Other sleep apnea Christos Pimentel MD 02/01/2019 I10 Essential (primary) hypertension Christos Pimentel MD 01/25/2019 I10 Essential (primary) hypertension Christos Pimentel MD 01/02/2019 J06.9 Acute upper respiratory infection, Arely Jaycee, [facility] unspecified 12/05/2018 J02.9 Acute pharyngitis, unspecified Arely Jaycee, [facility] 12/05/2018 H92.01 Otalgia, right ear Arelykelsie Champion, [facility] 12/05/2018 Z83.3 Family history of diabetes mellitus Arely Champion, [facility] 12/03/2018 J02.9 Acute pharyngitis, unspecified Mavis Avery, [facility] 12/03/2018 H92.01 Otalgia, right ear Mavis Avery, [facility] Plan of Treatment 05/04/2019 - Juany Robertson M.D.L60.0 Ingrowing nailNew Medication: Cephalexin 250 mg/5ML - 10 ml by mouth three times a day x 7Comments:Left big toe nail. infected, ingrowing. hot epsom salt soaks, twice a day. refer to podiatry.AllComments:Medication Management Patient Understands medications he's taking? Yes No Are there Barriersto Adherence? Yes No Has the patient been asked about herbal supplements and therapies, and OTC meds? Yes No Care Plan1. Patient has been queried about patient's goals/ preferencesand functional/lifestyle goals at relevant visits. If relevant, describe: na2. Treatment goals as explained to the patient: above3. Are there barriers to meeting treatment goals? Yes No If Yes, please describe:4. Self-Management goals as described to the patient: Yes No as above Functional Status Description No Information Available Mental Status Description No Information Available Referrals Refer to Reason for Referral Status Appt Date Mabel Whitley sleep apnea-consult and treat jw Scheduled 05/12/[address] [place] [address] [phone] Sussy Ridley new onset diabetes jw [facility] [address] [facility] [address] [phone]
--- OUTSIDE RECORDS SUMMARY | 2019-06-17 17:29 | XMS REPORT | Continuity of Care Document ---
:1993 External Reference #:[id number] Author Name Mabel Whitley MD (transmitted by agent of provider Hodan Cantu) Address [address], [address] [place] [address] Care Team Providers Name Role Phone Christos Pimentel MD - Family Care Team Information Manager Editorial [phone] Medicine Problems Description No Information Available Social History Type Date Description Comments Sex Unknown ETOH Use Rarely consumes alcohol Tobacco Use Start: Unknown End: Patient is a former Smoke 4 years & did Unknown smoker not inhale Recreational Drug Use Denies Drug Use Smoking Status Reviewed: 05/12/19 Patient is a former Smoke 4 years & did smoker not inhale Exercise Type/Frequency Exercises regularly Allergies, Adverse Reactions, Alerts Description No Known Drug Allergies Medications Description No Active Medications Immunizations Description No Information Available Vital Signs Date Vital Result Comment 05/12/2019 7:51am Height 72 inches 6'0" Weight 290.00 lb Heart Rate 92 /min BP Systolic Sitting 130 mmHg lg BP Diastolic Sitting 80 mmHg lg O2 % BldC Oximetry 96 % BMI (Body Mass Index) 39.3 kg/m2 Neck Circumference in inches 20.5 Results Description No Information Available Procedures Description No Information Available Medical Devices Description No Information Available Encounters Type Date Location Provider Dx Diagnosis Office Visit 05/12/2019 [facility] Mabel Whitley MD R06.83 Snoring 8:00a [facility] R53.83 Other fatigue Assessments Date Code Description Provider 05/12/2019 R06.83 Snoring Mabel Whitley MD 05/12/2019 R53.83 Other fatigue Mabel Whitley MD Plan of Treatment Future Appointment(s):05/26/2019 9:00 am - Genesis Robin NP at [facility]05/18/2019 10:30 am - Bon Loyola M.D. at [facility]05/12/2019 - Mabel Whitley, MDR06.83 SnoringNew Orders:Home Sleep Testing, Ordered: 05/12/19Follow up:2 vinztT39.83 Other fatigue Functional Status Description No Information Available Mental Status Description No Information Available Referrals Description No Information Available
--- OUTSIDE RECORDS SUMMARY | 2019-06-17 17:29 | XMS REPORT | Continuity of Care Document ---
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9 TRAVIS Lopez 2018 - te Potassium twice a day 01/25/2019 400-57mg with food Chewtabs Immunizations Description No Information Available Vital Signs Date Vital Result Comment 06/07/2019 8:59am BP Systolic 110 mmHg BP Diastolic 72 mmHg Heart Rate 72 /min Body Temperature 97.0 F Respiratory Rate 20 /min Weight 287.00 lb 05/04/2019 2:28pm BP Systolic 132 mmHg BP Diastolic 98 mmHg Heart Rate 78 /min Body Temperature 97.9 F Height 71 inches 5'11" Weight 289.00 lb BMI (Body Mass Index) 40.3 kg/m2 Results Test Date Facility Test Result H/L Range Note Laboratory test 06/07/2019 [facility] Hemoglobin A1c <pending> % 4.1-5.7 finding (607)- - (Fma) Laboratory test 04/16/2019 [facility] HCV AB (Fma) neg negative finding (607)- - Hepatitis B 04/16/2019 [facility] Hep B Surface Reactive 1, 2 Surface AB Qual [address] [facility], [place] [address] (607)- - Hep B Surface Ab See Comment: Comp Metabolic Panel 04/13/2019 [facility] Sodium 138 mmol/L Normal 135-145 3 Potassium [...] Egfr 108.0 >60 4 Laboratory test 04/13/2019 [facility] TSH (Thyroid Stim 2.07 mcIU/mL Normal 0.34 -5.60 5 finding Horm) CBC Auto Diff 04/13/2019 [facility] White Blood Count 10.6 10^3/uL Normal 3.5- [...] Blood Cells % 0.2 Laboratory test 04/13/2019 [facility] Point of Care 135 mg/dL High 70-100 6 finding Glucose Laboratory test 03/08/2019 [facility] Hemoglobin A1c 6.4 % High 4.1- 5.7 finding (607)- - (Fma) 1 SERUM 2 Non Reactive: Inconsistent with immunity, less than 10 mIU/mL Reactive: Consistent with immunity, greater than 9.9 mIU/mL 3 [id number] 4 Because ethnic data is not always [...] 5 Kidney failure <15 (or dialysis) 5 [id number] 6 [employer] Operator: [id number] Procedures Date Code Description Status 03/08/2019 03812 Finger Or Heel Stick Completed Medical Devices Description No Information Available Encounters Type Date Location Provider Dx Diagnosis Office Visit 05/04/2019 [facility] Office Juany Robertson, L60.0 Ingrowing nail 2:20p M.D. Office Visit 04/16/2019 [facility] Office Rosita Giles R53.83 Other fatigue 1:00p CONRAD Perez I10 Essential (primary) hypertension E11.9 Type 2 diabetes mellitus without complications Z20.5 Contact with and (suspected) exposure to viral hepatitis Z11.59 Encounter for screening for other viral diseases Office Visit 03/08/2019 9:40a [facility] Office Christos Serrato Essential MD Loren (primary) hypertension R73.9 Hyperglycemia, unspecified G47.39 Other sleep apnea Office Visit 02/01/2019 [facility] Christos Serrato Essential 10:00a Office MD Loren (primary) hypertension Office Visit 01/25/2019 [facility] Christos Serrato Essential 4:10p Office MD Loren (primary) hypertension Office Visit 01/02/2019 Main Office TRAVIS Lopez J06.9 Acute upper 9:30a respiratory infection, unspecified Assessments Date Code Description Provider 06/07/2019 E11.9 Type 2 diabetes mellitus without Christos Pimentel MD complications 06/07/2019 L60.0 Ingrowing nail Christos Pimentel MD 05/04/2019 L60.0 Ingrowing nail Juany Robertson M.D. [...] MD 01/02/2019 J06.9 Acute upper respiratory infection, TRAVIS Lopez unspecified Plan of Treatment 06/07/2019 - Christos Pimentel MDE11.9 Type 2 diabetes mellitus without [id number] Ingrowing nailAllNew Medication:No Active Medications - Comments:Medication Management Patient Understands medications he's taking? Yes No Are there Barriersto Adherence? Yes No Has the patient been asked about herbal supplements and therapies, and OTC meds? Yes No Functional Status Description No Information Available Mental Status Description No Information Available Referrals Refer to Reason for Referral Status Appt Date Mabel Whitley sleep apnea-consult and treat jw Scheduled 05/12/[address] [place] [id number] [phone] [place]-LEFT great toe jw Scheduled 05/18/2019 [address] [place] [address] new address as of 10/17/2014 [phone] Juany [place] nail-great toe jw Scheduled [address] [place] [address] [phone] Sussy Ridley new onset diabetes jw Scheduled [address] [place] [id number] [phone]
--- NOTE | 2019-06-17 17:50 | ED ---
Back Pain - HPI Summary HPI Summary: 24-year-old female presents with back pain today. He fell off a stair and landed on his feet. He states he felt like his back compresses on itself. Denies any neck pain. He admits to thoracic and lumbar back pain. He admits to numbness and tingling his feet. No decreased range of motion of his feet. No pain is straight. Has never had this before. No urinary symptoms. no loss of bowel or bladder. No saddle anesthesias. No urinary symptoms. - History of Current Complaint Chief Complaint: EDBackInjuryPain Stated Complaint: STEP BROKE AND FELL THROUGH,BACK PAIN PER PT Time Seen by Provider: 06/17/19 17:40 Pain Intensity: 7 - Allergies/Home Medications Allergies/Adverse Reactions: Allergies Allergy/AdvReac Type Severity Reaction Status Date / Time pollen extracts Allergy Severe CONGESTION, Verified 06/17/19 17:20 SNEEZY, RUNNY EYES PMH/Surg Hx/FS Hx/Imm Hx Endocrine/Hematology History: Reports: Hx Diabetes Denies: Hx Thyroid Disease Cardiovascular History: Reports: Hx Hypertension Respiratory History: Denies: Hx Asthma, Hx Chronic Obstructive Pulmonary Disease (COPD) GI History: Denies: Hx Ulcer Infectious Disease History: No Infectious Disease History: Denies: Hx Hepatitis, Hx Human Immunodeficiency Virus (HIV), History Other Infectious Disease, Traveled Outside the [place] in Last 30 Days - Family History Known Family History: Positive: None, Cardiac Disease, Hypertension, Diabetes - Social History Alcohol Use: Rare Substance Use Type: Reports: None Smoking Status (MU): Former Smoker Review of Systems Negative: Fever Negative: Chest Pain Negative: Shortness Of Breath Positive: Myalgia - back pain All Other Systems Reviewed And Are Negative: Yes Physical Exam Triage Information Reviewed: Yes Vital Signs On Initial Exam: Initial Vitals Temp Pulse Resp BP Pulse Ox 97.4 F 81 18 140/100 96 06/17/19 17:20 06/17/19 17:20 06/17/19 17:20 06/17/19 17:20 06/17/19 17:20 Vital Signs Reviewed: Yes Appearance: Positive: Well-Appearing Skin: Positive: Warm, Dry Head/Face: Positive: Normal Head/Face Inspection Eyes: Positive: Normal, Conjunctiva Clear ENT: Positive: Pharynx normal Respiratory/Lung Sounds: Positive: Clear to Auscultation, Breath Sounds Present Cardiovascular: Positive: Normal, RRR Musculoskeletal: Positive: Limited @ - back, Other - tenderness thoracic and lumbar back, sensation grossly intact, good pulses Neurological: Positive: Normal Psychiatric: Positive: Normal Procedures - Sedation Patient Received Moderate/Deep Sedation with Procedure: No Diagnostics - Vital Signs Vital Signs Temp Pulse Resp BP Pulse Ox 06/17/19 17:20 97.4 F 81 18 140/100 96 - Laboratory Lab Statement: Any lab studies that have been ordered have been reviewed, and results considered in the medical decision making process. - CT thoracic CT Interpretation Completed By: Radiologist Summary of CT Findings: IMPRESSION: No acute fractures of the thoracic spine. lumbar CT Interpretation Completed By: Radiologist Summary of CT Findings: IMPRESSION: Normal CT of the lumbar spine. No acute fractures. Back Pain Course/Dx - Course Course Of Treatment: 24-year-old female presents with back pain today. He fell off a stair and landed on his feet. He states he felt like his back compresses on itself. Denies any neck pain. He admits to thoracic and lumbar back pain. He admits to numbness and tingling his feet. No decreased range of motion of his feet. No pain is straight. Has never had this before. No urinary symptoms. no loss of bowel or bladder. No saddle anesthesias. No urinary symptoms. On exam has tenderness and lower back. Negative straight leg raise. Neurovascularly intact. CT shows no fracture. will treat with tyenlol and ibuprofen. patient understand and agrees with plan. - Diagnoses Differential Diagnosis/HQI/PQRI: Positive: Herniated Disc, Strain, Sprain Provider Diagnoses: Back pain Discharge ED - Sign-Out/Discharge Documenting (check all that apply): Patient Departure - Discharge Plan Condition: Good Disposition: HOME Patient Education Materials: Back Pain (ED) Forms: *Work Release Referrals: Christos Pimentel MD [Primary Care Provider] - Additional Instructions: Use ibuprofen or Tylenol for pain every 6 hours ice/heat area, move as much as possible Follow up with primary within 5 days Return to ED if develop any new or worsening symptoms - Billing Disposition and Condition Condition: GOOD Disposition: Home
[2019-06-17 19:59] VITALS: BP 139/101
== END 2019-06-17 19:57 | disposition home or self-care (01) ==
LOC: ED 17:15
DX: M54.9 Dorsalgia, unspecified (principal); E11.9 Type 2 diabetes mellitus without complications; I10 Essential (primary) hypertension; Z87.891 Personal history of nicotine dependence
CPT/HCPCS: 72128; 72131; 99282